=== PATIENT | female | born 1995 | race Caucasian/White ===

== ENCOUNTER 2023-03-06 07:20 | Inpatient (IN) ==
--- NOTE | 2023-03-06 07:31 | Emergency Department Note ---
HPI General Chief complaint: Abdominal Pain Stated complaint: kidney stones Time Seen by Provider: 03/06/23 07:30 Source: patient Mode of arrival: ambulatory Limitations: no limitations History of Present Illness HPI Narrative: Narrative: Patient is a 27-year-old female with a history of kidney stones who presents to the emergency department due to flank and groin pain. She states that the pain started in the left flank, and is now radiating to the groin. She states that it is a sharp pain. She states it improves somewhat when she lays flat and when she took Tylenol overnight, but denies any other palliative or provocative factors. She endorses some lightheadedness when she gets up to walk and the chills overnight. She also endorses nausea. She denies any other symptoms at this time. Related Data Previous Rx's Medication Instructions Recorded norelgestromin 150 mcg-e.estradiol 1 patch transdermal QWEEK #3 ea 06/27/18 35 mcg/24 hr weekly transderm patch Allergies Allergy/AdvReac Type Severity Reaction Status Date / Time No Known Drug Allergies Allergy Verified 03/06/23 07:27 Review of Systems ROS ROS Narrative: Narrative: Constitutional: Reports chills and sweats; Denies fever or weakness Eyes: Denies eye pain or vision change ENT ED: Denies throat pain or rhinorrhea Cardiovascular: Denies chest pain, dyspnea on exertion, orthopnea or edema Respiratory: Denies shortness of breath or cough Gastrointestinal: Reports abdominal pain and nausea; Denies vomiting, diarrhea, constipation, hematochezia or melena Musculoskeletal: Denies back pain or myalgia Integumentary: Denies rash or lesions Neurological: Denies weakness or dizziness [facility] Narrative Patient History Narrative: Narrative: Medical/Surgical/Family History All Active Problems (Updated 03/06/23 @ 14:56 by Johnnie Harmon MD) Intraabdominal mass (Acute) Sepsis (Acute) Hematuria (Acute) Lumbago (Acute) Right flank pain (Acute) 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) Back pain (Chronic) Acne (Chronic) Medical History (Updated 03/06/23 @ 14:56 by Johnnie Harmon MD) Acne February 2012 has taken Acutane in the past for control of this; stopped the Acutane Jul 2012 Back pain goes to chiropractor monthly and this helps manage Displacement of thoracic intervertebral disc without myelopathy 2011 between T11-12; confirmed on MRI; persistent pain rated 2/10 when not active; helped with chiropractic adjustment and PT Gastritis (01/16/14) Zantac not helpful; TUMS only partially helpful Throat pain Tonsillar hypertrophy Surgical History S/P tonsillectomy September [address] Cook Family History Paternal Grandfather Cardiac arrhythmia Maternal Grandfather Cardiac disease Disorder of liver Acute myocardial infarction Osteoarthritis Aunt Disorder of thyroid Social History Smoking Status: Never smoker Alcohol Intake Frequency: holiday/special occasion only Substance Use: does not use Exam Narrative Narrative: Narrative: General Limitations: no limitations General appearance: Present alert and in no apparent distress; Absent anxious, appears intoxicated or sleepy Head Head: Present atraumatic and normocephalic Eye Eye: Present EOMI; Absent scleral icterus or nystagmus ENT ENT: Present mucous membranes moist; Absent nasal congestion Neck Neck: Present full ROM and trachea midline Chest Chest: Present normal inspection and symmetric chest wall rise Respiratory Respiratory: Present normal lung sounds bilaterally; Absent respiratory distress, rales/crackles, wheezes, stridor or accessory muscle use Cardiovascular Cardiovascular: Present normal rhythm, tachycardia and normal heart sounds Adbominal Abdominal: Present soft, tenderness, guarding and normal bowel sounds; Absent distention, rebound or rigidity Extremities Extremities: Present normal inspection and full ROM Back Back: Present normal inspection and full ROM; Absent CVA tenderness (R) or CVA tenderness (L) Neurological Neurological: Present alert and oriented X3 Psychiatric Psychiatric: Present normal affect and normal mood Skin Skin: Present warm (WNL), dry and normal color Course Vital Signs Vital signs: Vital Signs Temperature 97.7 F 03/06/23 07:26 Pulse Rate 101 H 03/06/23 07:26 Respiratory Rate 19 03/06/23 07:26 Blood Pressure 100/64 03/06/23 07:26 Pulse Oximetry (%) 99 03/06/23 07:26 Oxygen Delivery Method Room Air 03/06/23 07:26 Temperature 103.4 F H 03/06/23 13:48 Pulse Rate 128 H 03/06/23 14:19 Respiratory Rate 21 03/06/23 14:19 Blood Pressure 115/56 03/06/23 14:19 Pulse Oximetry (%) 96 03/06/23 14:19 Oxygen Delivery Method Room Air 03/06/23 07:26 MDM MDM Narrative Medical decision making narrative: Narrative: Patient is a 27-year-old female who presents to the emergency department due to abdominal pain and nausea. Differential diagnoses include ectopic , tubo-ovarian abscess, colitis, diverticulitis, and STI. Patient's labs do demonstrate a borderline white blood cell count with neutrophilia. Patient's CT scan straits a mass in the left lower quadrant. This was further evaluated with an ultrasound. The read on the ultrasound is concerning for ectopic versus tubo-ovarian abscess. A quantitative hCG was performed and was undetectable. I did call and speak to Dr. Cabrera who recommended that patient receive a dose of ceftriaxone in the emergency department and then oral antibiotics with follow-up on Wednesday. I spoke to patient and family about this, and she did endorse chills at that time. We remeasured her temperature, and her temperature was elevated at 103 F. I called and spoke to Dr. Cabrera again, and he did agree to admission. Lab Data 03/06/23 12:25 Labs: Lab Results 03/06/23 03/06/23 03/06/23 Range/Units 07:49 07:49 07:49 WBC 10.5 (4.5-11.0) K/mcL RBC 4.39 (3.59-5.38) M/mcL Hgb 13.7 (11.2-15.7) g/dL Hct 39.9 (34.1-44.9) % POC Hct 43.0 (36-48) MCV 90.9 (80.0-100.0) fL MCH 31.2 (26.0-34.0) pg MCHC 34.3 (31.0-36.0) g/dL RDW 11.9 (11.5-14.5) % Plt Count 262 (140-440) K/mcL MPV 9.6 (8.8-12.5) fL Immature Gran % (Auto) 0.3 (0.0-0.5) % Neut % (Auto) 78.2 H (38.0-78.0) % Lymph % (Auto) 11.7 L (15.5-49.0) % [place] % (Auto) 9.1 (1.0-12.0) % Eos % (Auto) 0.5 (0.0-7.0) % Baso % (Auto) 0.2 (0.0-2.0) % Lymph # (Auto) 1.23 L (1.50-4.80) K/mcL [place] # (Auto) 0.96 H (0.10-0.90) K/mcL Eos # (Auto) 0.05 (0.00-0.70) K/mcL Baso # (Auto) 0.02 (0.00-0.30) K/mcL Immature Gran # 0.03 (0.00-0.05) K/mcl Absolute Neutrophils 8.21 H (1.80-8.00) K/mcL POC Sodium 137 (133-145) POC Potassium 3.5 (3.3-5.1) POC Chloride 102 (96-108) POC Total CO2 22.0 (22-30) POC Anion Gap 18.0 H (8.0-16.0) POC BUN 9 (6-20) POC Creatinine 0.7 (0.6-1.2) POC Glucose 108 H (70-105) POC WB Ioniz Calcium 1.18 (1.16-1.32) HCG Beta Subunit < 0.1 mIU/mL 03/06/23 03/06/23 Range/Units 07:49 12:25 WBC (4.5-11.0) K/mcL RBC (3.59-5.38) M/mcL Hgb TNP 13.0 (11.2-15.7) g/dL Hct TNP 38.3 (34.1-44.9) % POC Hct (36-48) MCV (80.0-100.0) fL MCH (26.0-34.0) pg MCHC (31.0-36.0) g/dL RDW (11.5-14.5) % Plt Count (140-440) K/mcL MPV (8.8-12.5) fL Immature Gran % (Auto) (0.0-0.5) % Neut % (Auto) (38.0-78.0) % Lymph % (Auto) (15.5-49.0) % [place] % (Auto) (1.0-12.0) % Eos % (Auto) (0.0-7.0) % Baso % (Auto) (0.0-2.0) % Lymph # (Auto) (1.50-4.80) K/mcL [place] # (Auto) (0.10-0.90) K/mcL Eos # (Auto) (0.00-0.70) K/mcL Baso # (Auto) (0.00-0.30) K/mcL Immature Gran # (0.00-0.05) K/mcl Absolute Neutrophils (1.80-8.00) K/mcL POC Sodium (133-145) POC Potassium (3.3-5.1) POC Chloride (96-108) POC Total CO2 (22-30) POC Anion Gap (8.0-16.0) POC BUN (6-20) POC Creatinine (0.6-1.2) POC Glucose (70-105) POC WB Ioniz Calcium (1.16-1.32) HCG Beta Subunit mIU/mL Discharge Plan Patient/Caregiver Discharge Instructions Pt seen by [employer] GRINDER/PA only: No Clinical Impression: Intraabdominal mass, Sepsis Patient Disposition: Xfer As Inpt ([facility]) Follow up with: Nohemy Donaldson, JOSE, COMMERCIAL PAINTER [Primary Care Provider] - Prescriptions: No Action norelgestromin-ethin.estradiol 150-35 mcg/24 hr patch weekly 1 patch TRANSDERMA QWEEK Qty: 3 9RF Rx Instructions: apply once weekly for 3 weeks of a 4-week cycle
[2023-03-06] MEDS ORDERED: LACTATED RINGERS 1,000 ML IV ONE (07:35)
[2023-03-06 07:53] LABS: POC Calcium, Ionized 1.18 (1.16-1.32); POC Creatinine 0.7 (0.6-1.2); POC Potassium 3.5 (3.3-5.1)
[2023-03-06] MEDS ORDERED: ONDANSETRON 4 MG/2 ML VIAL IV ONE ×2 (08:10→09:49)
[2023-03-06] MEDS ORDERED: KETOROLAC 30 MG/ML VIAL IV ONE (08:10)
--- NOTE | 2023-03-06 09:17 | Cat Scan Report ---
INDICATION: Hx of kidney stone, sx similar to previous COMPARISON: None. TECHNIQUE: Axial images were obtained through the abdomen and pelvis. Sagittally and coronally reformatted images. FINDINGS: Lung bases:No pulmonary parenchymal density. No calcified or noncalcified nodule. No pleural or pericardial effusion Liver:Negative to the limits of noncontrast enhanced examination. Liver contour is smooth without evidence for cirrhosis Gallbladder, bilary:No calcified gallstones. No gallbladder wall thickening. No pericholecystic fluid. No dilated bile ducts Spleen:No splenomegaly Pancreas:No pancreatic mass. No peripancreatic abnormality Adrenal glands:Negative Kidneys,ureters,bladder: 3 mm nonobstructing left upper pole calculus. There are other punctate densities. No detectable renal mass. There is no hydronephrosis. No hydroureter. No ureteral calculus. No bladder stone. No detectable bladder mass. Gastrointestinal:No detectable colonic mass. There is no diverticulitis. Negative small bowel. No mechanical small bowel obstruction. No bowel wall thickening. No focal abnormality. Negative stomach and duodenum. No focal abnormality. Appendix: The appendix is not well visualized. No evidence for appendicitis Vascular:No abdominal aortic aneurysm Lymphatic:No retroperitoneal adenopathy. No significant mesenteric adenopathy. Mesentery, peritoneum:No free intraperitoneal fluid. No intra-abdominal abscess. No pneumoperitoneum Reproductive:Uterus is anteflexed. There is a focal mass in the left adnexal region. On sagittally reformatted images this is superior to the uterus and contiguous with it. This measures approximately 6.5 x 4.7 x 5.0 cm. There is stranding within mesenteric fat within the pelvis. There are no gas bubbles with in this abnormality and no detectable wall thickening. This could be an ovarian cyst but hydrosalpinx is possible. Tubo-ovarian abscess is possible but wall thickening or gas bubbles would be expected. I am not given a history of fever leukocytosis. Pelvic ultrasound may be helpful for further evaluation. Musculoskeletal:No lumbar compression fractures. No lytic lesions. Sacrum, pelvis, hips are negative No anterior abdominal wall or inguinal hernia. IMPRESSION: 1. Left adnexal mass with mesenteric fat stranding. Hydrosalpinx or tubo-ovarian abscess are possible. Clinical correlation and pelvic ultrasound recommended 2. 2 mm nonobstructing left renal calculus. No hydronephrosis or hydroureter The exam was performed using radiation dose optimization techniques including, but not limited to, automated exposure control, adjustment of the mA and/or kV according to patient size and use of iterative reconstruction technique. Interpreted and Authenticated by: Jose Gagnon 03/06/23
[2023-03-06] MEDS ORDERED: morphine 4 MG/ML VIAL IM ONE (09:49)
[2023-03-06] MEDS ORDERED: 0.9 % SODIUM CHLORIDE 1,000 ML IV ONE (10:34)
--- NOTE | 2023-03-06 10:43 | Ultrasound Report ---
INDICATION: Left adnexal mass TECHNIQUE: Endovaginal pelvic ultrasound COMPARISON: Previous CT scan dated 03/06/2023 FINDINGS: CT scan demonstrates a fluid density mass within the pelvis. There is associated stranding of the mesenteric fat. Uterus measures 8.8 x 3.9 x 5.6 cm. There is no intrauterine . No myometrial abnormality. There is an intrauterine contraceptive device in appropriate position. Right ovary measures 2.5 x 1.8 x 2.7 cm. Normal vascularity. No solid or cystic mass Left ovary is identified. Left ovary measures 2.7 x 2.2 x 2.5 cm. Left ovary appears normal. There is a contiguous left adnexal abnormality. There is a complex mass which measures approximately 6.0 x 1.6 x 7.1 cm. There are cystic and solid components. The cystic portions of this mass contain debris. Solid components are heterogeneous and measure 4.8 x 3.4 x 2.5 cm. This is hypervascular. This patient apparently has a negative urine test. Differential diagnosis includes ectopic with negative urine test or tubo-ovarian abscess. Quantitative test may be helpful for further evaluation. There is moderate free fluid within the pelvis. This free fluid contains echoes and may be hemorrhagic IMPRESSION: 1. Sonographically complex left adnexal mass. Differential diagnosis includes ectopic with negative urine test or tubo-ovarian abscess 2. Moderate free fluid within the pelvis. This contains internal echoes and may be hemorrhagic 3. Intrauterine device with in the uterus. No intrauterine Interpreted and Authenticated by: Jose Gagnon 03/06/23
[2023-03-06 11:37] LABS: HCG Titer, Quantitative < 0.1 mIU/mL
[2023-03-06 11:50] LABS: Basophils # (Auto) 0.02 K/mcL (0.00-0.30); Basophils % (Auto) 0.2 % (0.0-2.0); Eosinophils # (Auto) 0.05 K/mcL (0.00-0.70); Eosinophils % (Auto) 0.5 % (0.0-7.0); Hematocrit 39.9 % (34.1-44.9); Hemoglobin 13.7 g/dL (11.2-15.7); Lymphocytes # (Auto) 1.23 K/mcL (1.50-4.80); Lymphocytes % (Auto) 11.7 % (15.5-49.0); Mean Cell Volume 90.9 fL (80.0-100.0); Mean Corpuscular HGB Conc 34.3 g/dL (31.0-36.0); Mean Platelet Volume 9.6 fL (8.8-12.5); Monocytes # (Auto) 0.96 K/mcL (0.10-0.90); Monocytes % (Auto) 9.1 % (1.0-12.0); Neutrophils % (Auto) 78.2 % (38.0-78.0); Platelet Count 262 K/mcL (140-440); RBC 4.39 M/mcL (3.59-5.38); Red Cell Distribution Width 11.9 % (11.5-14.5); WBC 10.5 K/mcL (4.5-11.0)
[2023-03-06 13:18] LABS: Hematocrit 38.3 % (34.1-44.9)
[2023-03-06] MEDS ORDERED: ACETAMINOPHEN 325 MG TABLET PO PRN ×2 (13:18→13:53)
[2023-03-06] MEDS ORDERED: cefTRIAXone 2 GM in DEXTROSE 5% IN WATER 50 ML IV ONE (13:52)
[2023-03-06] MEDS ORDERED: fentaNYL 100 MCG/2 ML VIAL IV PRN ×3 (14:02→19:59)
[2023-03-06] MEDS: ONDANSETRON 4 MG/2 ML VIAL IV PRN (15:50)
[2023-03-06] MEDS ORDERED: metroNIDAZOLE 100 ML IV ONE (17:52)
[2023-03-06] MEDS: metroNIDAZOLE 500 MG/100 ML BAG IV SCH (18:31)
[2023-03-06] MEDS ORDERED: DEXAMETHASONE 10 MG/ML VIAL ONE (18:58)
[2023-03-06] MEDS ORDERED: PHENYLephrine 1 MG/10 ML SYRINGE (ANEST) ONE (18:58)
[2023-03-06] MEDS ORDERED: SUGAMMADEX SODIUM 200 MG/2 ML VIAL IV ONE (18:58)
[2023-03-06] MEDS ORDERED: LIDOCAINE HCL/PF 100 MG/5 ML SYRINGE IV ONE (18:58)
[2023-03-06] MEDS ORDERED: ROCURONIUM 10 MG/ML ML IV ONE (18:58)
[2023-03-06] MEDS ORDERED: PROPOFOL 200 MG/20 ML VIAL IV ONE (18:58)
[2023-03-06] MEDS ORDERED: fentaNYL 100 MCG/2 ML VIAL IV ONE (18:58)
--- NOTE | 2023-03-06 19:47 | History and Physical Report ---
DATE OF ADMISSION: 03/06/2023 HISTORY OF PRESENT ILLNESS: The patient is a 27-year-old female who presented to the emergency room tonight complaining of 10-hour onset of sharp left lower quadrant abdominal and pelvic pain. She has been noting increasing pelvic and abdominal pain over the past 10 hours. She had no pain after this. The patient denies vaginal bleeding. Her pain has been constant and sharp. She received some pain medication in order to help with this. Her pain is better controlled now. The pain became fairly more severe upon entry. The patient developed considerable discomfort. The patient was seen in the emergency room and was found to have a fever of 103.3. The patient began having chills at that time. An ultrasound showed a 6 cm complex abdominal mass. The patient comes to the hospital with no previous SNAGGER history. PAST ROD PLACER HISTORY: The patient has had 2 previous pregnancies and two vaginal deliveries. MEDICAL HISTORY: Negative. PAST SURGICAL HISTORY: She had kidney stones removed endoscopically and tonsillitis. She also had her wisdom teeth removed. ALLERGIES: NONE. MEDICATIONS: Mirena IUD. SOCIAL HISTORY: She denies smoking, drugs, or alcohol. FAMILY HISTORY: Reviewed and otherwise negative. REVIEW OF SYSTEMS: Abdominal pain, fever, chills, whitish vaginal discharge. PHYSICAL EXAMINATION: VITAL SIGNS: Blood pressure of 115/67, pulse 120, respiratory rate of 18, temperature 103.3. HEENT: Normocephalic, atraumatic. Mouth: No erythema, no exudate. NECK: Supple, no lymphadenopathy, no thyromegaly. Trachea is midline. LUNGS: Clear to auscultation. No wheezes, rales, or rhonchi. HEART: Slightly tachycardic. No murmurs, gallops or rubs. ABDOMEN: Soft, tender in the left lower quadrant. EXTREMITIES: Show no clubbing, cyanosis, or edema. LABORATORY DATA: White blood cell count is 10.5, H and H is 13 and 38, platelets are 262. She does have a left shift. Chemistries: Sodium 137, potassium 3.5, chloride 102, CO2 of 22, glucose 108, BUN 9, creatinine 0.7. HCG is negative. ASSESSMENT AND PLAN: A 27-year-old female who presents today with left lower quadrant a cm pelvic mass and fever and a left shift. At this point, I have discussed options with them. I have started her on Rocephin and Flagyl. We will take her to the OR as I have recommended left ovarian cystectomy, possible tubo-ovarian abscess drainage and possible removal of left tube and ovary. Risks versus benefits discussed, understood, and accepted, which include, but are not limited to bleeding, infection, bladder injury, bowel injury, scar tissue, wound infections, transfusion risks including reaction to blood, HIV, hepatitis, anesthesia problems, blood clots that can go from the legs to the lungs, and the need to make any incision necessary. All questions answered. Alternatives discussed and the patient wished to proceed with surgery as recommended. LAURA:woodrow Job ID: [id number] Doc ID: [id number] Carlos Alberto Cabrera MD
[2023-03-06] MEDS ORDERED: NALOXONE HCL 0.4 MG/ML VIAL IV PRN (19:59)
[2023-03-06] MEDS ORDERED: HYDROmorphone 0.5 MG/0.5 ML SYRINGE IV PRN (19:59)
[2023-03-06] MEDS ORDERED: ACETAMINOPHEN 1,000 MG/100 ML BAG IV ONE (19:59)
[2023-03-06] MEDS ORDERED: IPRATROPIUM/ALBUTEROL 3 ML AMPUL.NEB NEB PRN (19:59)
[2023-03-06] MEDS ORDERED: PROMETHAZINE 25 MG/ML VIAL IV PRN (19:59)
[2023-03-06] MEDS ORDERED: ONDANSETRON 4 MG/2 ML VIAL IV PRN (19:59)
[2023-03-06] MEDS ORDERED: LIDOCAINE 1% 10 ML VIAL SQ ONE (20:10)
[2023-03-06] MEDS ORDERED: PROCHLORPERAZINE 10 MG/2 ML VIAL IV ONE (20:31)
[2023-03-06] MEDS: DOXYCYCLINE HYCLATE 100 MG TABLET.ORL PO SCH (22:10)
[2023-03-07] MEDS ORDERED: cefTRIAXone 1 GM VIAL IV SCH (02:00)
[2023-03-07] MEDS: metroNIDAZOLE 500 MG/100 ML BAG IV SCH ×2 (05:18→17:19)
[2023-03-07] MEDS: 0.9 % SODIUM CHLORIDE 10 ML SYRINGE IV SCH ×3 (05:19→22:06)
[2023-03-07 07:16] LABS: Hemoglobin 11.9 g/dL (11.2-15.7); Mean Cell Volume 91.4 fL (80.0-100.0); Mean Platelet Volume 9.7 fL (8.8-12.5); Platelet Count 219 K/mcL (140-440); RBC 3.83 M/mcL (3.59-5.38); Red Cell Distribution Width 12.1 % (11.5-14.5)
[2023-03-07] MEDS ORDERED: cefTRIAXone 2 GM VIAL ONE (08:38)
[2023-03-07] MEDS: cefTRIAXone 2 GM in DEXTROSE 5% IN WATER 50 ML IV SCH (09:00)
[2023-03-07 09:23] LABS: Band Neutrophils % 13 % (0-10); Lymphocytes % 5 % (15-49); Monocytes % (Manual) 2 % (1-12); Platelet Estimate NORMAL (Normal); RBC Morphology NORMAL (Normal); Segmented Neutrophils % 80 % (38-78)
[2023-03-07] MEDS: DOXYCYCLINE HYCLATE 100 MG TABLET.ORL PO SCH ×2 (09:46→22:06)
[2023-03-07] MEDS ORDERED: HYDROCODONE/APAP 7.5/325MG TABLET PO PRN (10:40)
--- NOTE | 2023-03-07 10:54 | OB/GYN Progress Note ---
A/P Assessment and plan (1) Sepsis: Status: Acute Plan Continue IV antibiotics Sepsis Sepsis Identified: Yes Date Sepsis Identified: 03/06/23 Time Sepsis Identified: 16:00 Comments: pt has a resolving TOA Narrative A/P Narrative: Left Tubo Ovarian Abscess Plan of Treatment: Continue IV antibiotics. Time Spent With Patient Time: Total time spent is greater than 50% in coordination of care (as documented) at patient's floor/unit and/or counseling patient: Initial: Total time with patient: Less than 40 minutes Subsequent: Total time with patient: Less than 25 minutes Critical Care Time: No Total Critical Care Time: 8 Attestation: fd SUBJECTIVE Subjective Patient information: Note initiated : 03/07/23 at 10:49 am Service Date, if different from initiated Date: [] Patient: Bethanie Hines 27 y/o F admitted on 03/06/23 for kidney stones. Chief Complaint: [] Principal diagnosis: Left Tubo Ovarian Abscess Interval history: Pt seems to feel much better today. Her abdomen is much less sore. She is tolerating po at this point. No further nausea and vomiting. Constitutional Vitals: Vital Signs Temp Pulse Resp BP Pulse Ox O2 Del Method 97.5 F 62 16 100/54 97 Room Air 03/07/23 08:00 03/07/23 08:00 03/07/23 08:00 03/07/23 08:00 03/07/23 08:00 03/07/23 08:00 Period Temp Pulse Resp BP Sys/Winter Pulse Ox O2 Del Method O2 Flow Rate Last 24 Hr 97.5 F-103.4 F 59-135 15-27 90-131/46-78 94-100 Room Air-Room Air Intake and Output 03/06/23 03/07/23 03/07/23 19:59 03:59 11:59 Intake Total 1050 1600 800 Output Total 100 1400 Balance 1050 1500 -600 Weight 161 lb 1 oz 163 lb 9.6 oz Intake & Output: Intake & Output 03/06/23 03/07/23 03/07/23 19:59 03:59 11:59 Intake Total 1050 1600 800 Output Total 100 1400 Balance 1050 1500 -600 Weight 161 lb 1 oz 163 lb 9.6 oz Intake: IV 1050 200 Sodium Chloride 0.9% 1,000 ml @ 1000 Wide Open IV BOLUS ONE Rx#: [id number] Rocephin 2 gm In Dextrose 5% in 50 Water 50 ml @ 100 mls/hr IV ONCE ONE Rx#:[id number] Flagyl 100 ml @ 0 mls/hr IV . 100 STK-MED ONE Rx#:[id number] Oral 800 IV - Manual Only 1400 Output: Void Amount 100 1400 Other: Meal Breakfast Percent of Meal Consumed 100% Feeding Ability Independent Urine Appearance Hematuria Clear Urine Color Medium Red Yellow Urine Odor Normal Normal GI/Abdominal GI/Abdominal exam: Present normal bowel sounds and soft Additional comments: incision is clean and intact no erythema or exudate OBJ DATA Labs 03/07/23 05:35 Labs: Abnormal Lab Results 03/07/23 03/06/23 03/06/23 05:35 07:49 07:49 WBC 17.0 H Neut % (Auto) 78.2 H Lymph % (Auto) 11.7 L Lymph # (Auto) 1.23 L [place] # (Auto) 0.96 H Seg Neutrophils % 80 H Band Neutrophils % 13 H Lymphocytes % 5 L Absolute Neutrophils 8.21 H POC Anion Gap 18.0 H POC Glucose 108 H Meds: Medications Acetaminophen (Acetaminophen 325 Mg Tablet) 650 mg PO Q4-6HP PRN; Protocol PRN Reason: Per Pain Protocol/Fever > 101 Hydrocodone Bitart/Acetaminophen (Hydrocodone/Apap 7.5/325mg Tablet) 1 tab PO Q4-6HP PRN; Protocol PRN Reason: Per Pain Protocol Doxycycline Hyclate (Doxycycline Hyclate 100 Mg Tablet.Orl) 100 mg PO BID EVA; Protocol Last Admin: 03/07/23 09:46 Dose: 100 mg Fentanyl (Fentanyl 100 Mcg/2 Ml Vial) 50 mcg IV Q4HP PRN; Protocol PRN Reason: Per Pain Protocol Last Admin: 03/06/23 16:38 Dose: 50 mcg Ceftriaxone Sodium 2 gm/ (Dextrose) 50 mls @ 100 mls/hr IV DAILY [facility] Last Admin: 03/07/23 09:00 Dose: 100 mls/hr Metronidazole (Flagyl) 500 mg in 100 mls @ 100 mls/hr IV Q12H EVA; Protocol Last Admin: 03/07/23 05:18 Dose: 100 mls/hr Ondansetron HCl (Ondansetron 4 Mg/2 Ml Vial) 4 mg IV Q4HP PRN; Protocol PRN Reason: Nausea And Vomiting Last Admin: 03/06/23 15:50 Dose: 4 mg Sodium Chloride (0.9 % Sodium Chloride 10 Ml Syringe) 10 ml IV Q8 [facility] Last Admin: 03/07/23 05:19 Dose: 10 ml
[2023-03-07] MEDS: ONDANSETRON 4 MG/2 ML VIAL IV PRN (14:54)
[2023-03-07] MEDS: ACETAMINOPHEN 325 MG TABLET PO PRN (22:15)
[2023-03-08] MEDS: 0.9 % SODIUM CHLORIDE 10 ML SYRINGE IV SCH ×4 (02:26→21:45)
[2023-03-08] MEDS: ONDANSETRON 4 MG/2 ML VIAL IV PRN ×3 (02:26→21:44)
[2023-03-08] MEDS: metroNIDAZOLE 500 MG/100 ML BAG IV SCH ×2 (05:26→17:43)
[2023-03-08 06:49] LABS: Hematocrit 34.8 % (34.1-44.9); Hemoglobin 11.6 g/dL (11.2-15.7); Mean Corpuscular HGB Conc 33.3 g/dL (31.0-36.0); Mean Platelet Volume 9.6 fL (8.8-12.5); Platelet Count 237 K/mcL (140-440); RBC 3.74 M/mcL (3.59-5.38); Red Cell Distribution Width 12.5 % (11.5-14.5); WBC 13.9 K/mcL (4.5-11.0)
[2023-03-08] MEDS: ACETAMINOPHEN 325 MG TABLET PO PRN ×2 (08:28→21:44)
--- NOTE | 2023-03-08 08:31 | Operative Note ---
DATE OF OPERATION: 03/06/2023 DATE OF PROCEDURE: 03/06/2023 PREOPERATIVE DIAGNOSIS: A 6 cm left adnexal mass, pelvic pain and fever. POSTOPERATIVE DIAGNOSES: 1. A 6 cm left adnexal mass, pelvic pain and fever. 2. Left tubo-ovarian abscess. PROCEDURE: 1. Laparoscopic left salpingectomy. 2. Removal of left tubo-ovarian abscess. SURGEON: Carlos Alberto Cabrera M.D. ANESTHESIA: General. ESTIMATED BLOOD LOSS: Minimal. FINDINGS: The patient had pus in her pelvis upon entry. Uterus was inflamed and normal. There were light adhesions of the left ovary to the pelvic sidewall with an enlarged tubo-ovarian abscess. The left fallopian tube was enlarged and hardened consistent with an inflamed infected structure. There was pus exuding all over her pelvis from this walled off structure in her cul-de-sac and pelvis. The bowel had just filmy adhesions to the female organs. SPECIMEN: Left fallopian tube and abscess cavity. COMPLICATIONS: None. DESCRIPTION OF PROCEDURE: The patient was taken to the operating room and placed in the dorsal lithotomy position and prepped and draped in the normal sterile fashion for an abdominal procedure. After adequate anesthesia was administered, a Mixpanellka uterine manipulator was placed on the anterior lip of the cervix. A catheter was inserted into the bladder and left throughout the case. Attention was turned to the abdomen. Local anesthesia was placed. An incision was made and a 5 mm trocar was placed into the infraumbilical space. This was placed into the peritoneal cavity. This was confirmed, CO2 was allowed to insufflate the peritoneal cavity to a pressure of 15 mmHg. The patient subsequently had two other trocars placed under visualization of the laparoscope. One was placed in the right lower quadrant and one in the left lower quadrant. This was placed without issue. The patient was noted to have significant pus in the pelvis. This was draining anteriorly over the top of the uterus and in the cul-de-sac. There was a bowel, which was inflamed and adherent to the female organs including the left ovary and the posterior cul-de-sac. The right ovary and tube appeared to be inflamed, but normal. I was able to easily dissect those out. The bowel was easily dissectible away from its attachment to the tube and ovary. No damage to bowel was made at this time. The left ovary had an abscess cavity, which I removed portions of such. The left fallopian tube was inflamed and very hard and it appeared to be the originator of this abscess cavity. The left ovary was identifiable. I was able to free up the left tube and ovary from the pelvic sidewall and all other adhesions. At this point, I made the decision to remove the left fallopian tube. The LigaSure was used to clamp across the fallopian tube, which was cauterized and cut. The ovary was preserved as it appeared to be without being a part of the infectious process. Suction irrigation was then performed, removing all of the pus in the pelvis and abdomen. I was able to irrigate the pelvis extensively in the upper abdomen. I tried to remove all the excess fluid, both serosanguineous and pus-like fluid. Care was made sure not to damage any bowel during this time. Once again reexamined the pelvis and all areas were hemostatic. I irrigated one more time leaving a minimal amount of fluid within the pelvis. At this point, all the pus had been removed and the abscess cavity and the fallopian tube had been removed through the infraumbilical incision. A 12 port was placed there and an Endobag was placed, placing this fallopian tube within it. This was removed through the Endobag and the 12 port. Once again, further inspection noted no damage to any organs and irrigation was performed again. A small amount of fluid was left. The CO2 was allowed out. The infraumbilical incision was closed with 0 Vicryl and 4-0 Vicryl. The two lower quadrant incisions were closed with 4-0 Vicryl. Steri-Strips and Band-Aids were placed over each. All instruments were removed from the vagina. The patient tolerated this procedure well. All instrument, needle and sponge counts were correct at the end of the procedure. The patient was taken from the operating room to the recovery room in stable condition. ABW:dennis Job ID: [id number] Doc ID: [id number] Carlos Alberto Cabrera MD
--- NOTE | 2023-03-08 08:49 | OB/GYN Progress Note ---
A/P Assessment and plan (1) Tubo-ovarian abscess: Status: Acute Plan Continue IV antibiotics Narrative A/P Narrative: Pt improving. Passing flatus and bowels are moving. Pt feeling better today. Less soreness in her abdomen today. Plan of Treatment: Continue IV antibiotics as WBC still elevated. Time Spent With Patient Time: Total time spent is greater than 50% in coordination of care (as documented) at patient's floor/unit and/or counseling patient: Subsequent: Total time with patient: Less than 25 minutes Critical Care Time: No SUBJECTIVE Subjective Patient information: Note initiated : 03/08/23 at 8:47 am Service Date, if different from initiated Date: [] Patient: Bethanie Hines 27 y/o F admitted on 03/06/23 for kidney stones. Chief Complaint: [] Principal diagnosis: Left Tubo Ovarian Abscess Interval history: Pt better today. Abdomen is less sore and decreased swelling. Constitutional Vitals: Vital Signs Temp Pulse Resp BP Pulse Ox O2 Del Method 97.9 F 80 17 110/64 96 Room Air 03/08/23 04:18 03/08/23 04:18 03/08/23 04:18 03/08/23 04:18 03/08/23 04:18 03/08/23 04:18 Period Temp Pulse Resp BP Sys/Winter Pulse Ox O2 Del Method O2 Flow Rate Last 24 Hr 97.9 F-98.8 F 78-89 16-17 105-121/60-71 95-99 Room Air-Room Air Intake and Output 03/07/23 03/08/23 03/08/23 19:59 03:59 11:59 Intake Total 250 800 Output Total 1400 1000 400 Balance -1150 -1000 400 Weight 156 lb 12.8 oz Intake & Output: Intake & Output 03/07/23 03/08/23 03/08/23 19:59 03:59 11:59 Intake Total 250 800 Output Total 1400 1000 400 Balance -1150 -1000 400 Weight 156 lb 12.8 oz Intake: IV 250 Rocephin 2 gm In Dextrose 5% in 50 Water 50 ml @ 100 mls/hr IV DAILY [facility] Rx#:[id number] Oral 800 Output: Void Amount 1400 1000 400 Other: Meal Dinner Percent of Meal Consumed 100% Feeding Ability Independent Urine Appearance Clear Clear Clear Urine Color Yellow Yellow Yellow Urine Odor Normal Normal Normal GI/Abdominal GI/Abdominal exam: Present normal bowel sounds and soft Additional comments: non-distended, incisions are clean and dry and intact. no erythema or exudate today. OBJ DATA Labs 03/08/23 05:42 Labs: Abnormal Lab Results 03/08/23 03/07/23 03/06/23 05:42 05:35 07:49 WBC 13.9 H 17.0 H Neut % (Auto) 78.2 H Lymph % (Auto) 11.7 L Lymph # (Auto) 1.23 L [place] # (Auto) 0.96 H Seg Neutrophils % 80 H Band Neutrophils % 13 H Lymphocytes % 5 L Absolute Neutrophils 8.21 H POC Anion Gap POC Glucose 03/06/23 07:49 WBC Neut % (Auto) Lymph % (Auto) Lymph # (Auto) [place] # (Auto) Seg Neutrophils % Band Neutrophils % Lymphocytes % Absolute Neutrophils POC Anion Gap 18.0 H POC Glucose 108 H Meds: Medications Acetaminophen (Acetaminophen 325 Mg Tablet) 650 mg PO Q4-6HP PRN; Protocol PRN Reason: Per Pain Protocol/Fever > 101 Last Admin: 03/08/23 08:28 Dose: 650 mg Hydrocodone Bitart/Acetaminophen (Hydrocodone/Apap 7.5/325mg Tablet) 1 tab PO Q4-6HP PRN; Protocol PRN Reason: Per Pain Protocol Last Admin: 03/07/23 14:32 Dose: 1 tab Doxycycline Hyclate (Doxycycline Hyclate 100 Mg Tablet.Orl) 100 mg PO BID EVA; Protocol Last Admin: 03/07/23 22:06 Dose: 100 mg Fentanyl (Fentanyl 100 Mcg/2 Ml Vial) 50 mcg IV Q4HP PRN; Protocol PRN Reason: Per Pain Protocol Last Admin: 03/06/23 16:38 Dose: 50 mcg Ceftriaxone Sodium 2 gm/ (Dextrose) 50 mls @ 100 mls/hr IV DAILY EVA Last Infusion: 03/07/23 18:37 Dose: Infused Metronidazole (Flagyl) 500 mg in 100 mls @ 100 mls/hr IV Q12H EVA; Protocol Last Admin: 03/08/23 05:26 Dose: 100 mls/hr Ondansetron HCl (Ondansetron 4 Mg/2 Ml Vial) 4 mg IV Q4HP PRN; Protocol PRN Reason: Nausea And Vomiting Last Admin: 06/12/23 02:26 Dose: 4 mg Sodium Chloride (0.9 % Sodium Chloride 10 Ml Syringe) 10 ml IV Q8 EVA Last Admin: 03/08/23 05:27 Dose: 10 ml
[2023-03-08] MEDS: cefTRIAXone 2 GM in DEXTROSE 5% IN WATER 50 ML IV SCH (09:49)
[2023-03-08] MEDS: DOXYCYCLINE HYCLATE 100 MG TABLET.ORL PO SCH ×2 (09:51→21:44)
[2023-03-08 10:46] LABS: Band Neutrophils % 7 % (0-10); Lymphocytes % 14 % (15-49); Monocytes % (Manual) 3 % (1-12); Platelet Estimate NORMAL (Normal); RBC Morphology NORMAL (Normal); Segmented Neutrophils % 76 % (38-78)
[2023-03-09] MEDS: ONDANSETRON 4 MG/2 ML VIAL IV PRN (02:38)
[2023-03-09] MEDS: 0.9 % SODIUM CHLORIDE 10 ML SYRINGE IV SCH (06:09)
[2023-03-09] MEDS: metroNIDAZOLE 500 MG/100 ML BAG IV SCH (06:09)
[2023-03-09 06:35] LABS: Hematocrit 37.2 % (34.1-44.9); Hemoglobin 12.3 g/dL (11.2-15.7); Mean Cell Volume 92.8 fL (80.0-100.0); Mean Corpuscular HGB Conc 33.1 g/dL (31.0-36.0); Mean Platelet Volume 9.3 fL (8.8-12.5); Platelet Count 263 K/mcL (140-440); RBC 4.01 M/mcL (3.59-5.38); Red Cell Distribution Width 12.5 % (11.5-14.5); WBC 9.4 K/mcL (4.5-11.0)
[2023-03-09 08:08] LABS: Band Neutrophils % 7 % (0-10); Eosinophils % (Manual) 1 % (0-7); Lymphocytes % 15 % (15-49); Monocytes % (Manual) 5 % (1-12); Platelet Estimate NORMAL (Normal); RBC Morphology NORMAL (Normal); Segmented Neutrophils % 72 % (38-78)
[2023-03-09] MEDS: DOXYCYCLINE HYCLATE 100 MG TABLET.ORL PO SCH (08:27)
[2023-03-09] MEDS: cefTRIAXone 2 GM in DEXTROSE 5% IN WATER 50 ML IV SCH (08:27)
--- NOTE | 2023-03-09 12:23 | Discharge Summary ---
DATE OF ADMISSION: 03/08/2023 DATE OF DISCHARGE: 03/09/2023 DATE OF ADMISSION: 03/06/2023 DATE OF DISCHARGE: 03/09/2023 ADMITTING PHYSICIAN: Carlos Alberto Cabrera MD ADMITTING DIAGNOSIS: Tubo-ovarian abscess. DISCHARGE DIAGNOSIS: Same. PROCEDURE: 1. Laparoscopic left salpingectomy and removal of tubo-ovarian abscess. 2. IV antibiotics. HOSPITAL COURSE: The patient is a 27-year-old female who presented to the hospital on 03/06/2023 complaining of acute left lower quadrant pelvic pain. The patient developed a fever of 103 in the Emergency Room and had an elevated white count with a left shift. The patient had a 6 cm mass off the left ovary. She was started on IV Rocephin and taken to the OR. The patient had a left tubo-ovarian abscess. I irrigated and cleaned out the pelvis. She had an irregular hardened portion of the left fallopian tube, which was removed and the abscess cavity was removed. The pelvis was cleaned up. The patient was placed on the floor and was placed on IV Rocephin along with p.o. doxycycline and IV Flagyl. The patient's white count was 17,000 the next day and even though she was afebrile and feeling better, she was continued on the IV antibiotics. Her abdomen was soft and slightly firm, but her incisions were clean, dry and intact. The patient has continued to improve. Her white count the next day was 13 with a left shift and today it is 9 and normal. She feels good. She is ambulating and tolerating p.o. She is voiding and passing gas and having regular bowel movements. DISCHARGE INSTRUCTIONS: She is to be discharged home today. She is to be followed up in the office next week. She will be kept on doxycycline and Flagyl p.o. antibiotics. The patient was told to call for fever, increasing pain or discomfort or difficulty. The patient does not require pain medication as she is using just Tylenol and ibuprofen for pain. [email or web address] Job ID: [id number] Doc ID: [id number] Carlos Alberto Cabrera MD
== END 2023-03-09 13:30 | disposition home or self-care (01) | DRG 743 ==
LOC: ED 07:20 → MEDSUR 07:20
PROVIDERS: ADMIT Obstetrics & Gynecology; ATTEND Obstetrics & Gynecology